=== PATIENT | female | born 1985 | race Caucasian/White ===

== ENCOUNTER 2021-12-14 14:59 | Outpatient (CLI) | payer OTHER, SELFPAY ==
[2021-12-16 14:15] LABS: Cortisol, Serum 5.4 ug/dL; Follicle Stimulating Hormone 7.2 IU/L
[2021-12-17 00:01] LABS: Prolactin 3.7 ng/mL (2.8-29.2)
[2021-12-19 10:58] LABS: 17-Hydroxyprogesterone HPLC 52.59 ng/dL (<=206.00)
[2022-01-03 09:02] LABS: Sex Hormone Binding Globulin 47 nmol/L (25-122); Testosterone, Free LC-MS/MS 7.2 pg/mL (1.3-9.2); Testosterone, LC-MS/MS 54 ng/dL (9-55)
== END 2021-12-14 15:00 | disposition home or self-care (01) ==
PROVIDERS: PCP Family Medicine; Visit Provider Obstetrics & Gynecology
DX: Z01.419 Encounter for gynecological examination (general) (routine) without abnormal findings (principal); N92.6 Irregular menstruation, unspecified; Z12.4 Encounter for screening for malignant neoplasm of cervix
CPT/HCPCS: 82533; 83001; 83498; 83520; 84146; 84270; 84402; 84403; 87624; 88175

== ENCOUNTER 2023-01-01 08:00 | Outpatient (CLI) | payer OTHER, SELFPAY | END 2023-01-01 08:01 | disposition home or self-care (01) | LOC: NFLDREF 01-03 13:00 | PROVIDERS: PCP Family Medicine; Referring Provider Family Medicine; Visit Provider Family Medicine | DX: Z13.1 Encounter for screening for diabetes mellitus (principal); E78.00 Pure hypercholesterolemia, unspecified | CPT/HCPCS: 80053; 80061 ==

== ENCOUNTER 2024-06-03 08:00 | Outpatient (CLI) | payer OTHER, SELFPAY | END 2024-06-03 08:01 | disposition home or self-care (01) | LOC: NFLDREF 06-04 01:35 | PROVIDERS: PCP Family Medicine; Referring Provider Family Medicine; Visit Provider Family Medicine | DX: E78.00 Pure hypercholesterolemia, unspecified (principal) | CPT/HCPCS: 80053; 80061 ==